=== PATIENT | female | born 1985 | race Hispanic/Latino ===

== ENCOUNTER → 2023-09-02 | Outpatient (CLI) | payer OTHER ==
[2023-09-02 16:58] LABS: T4 (THYROXINE) 10.8 ug/dL (4.7-13.3); THYROID STIMULATING HORMONE 1.07 uIU/mL (0.36-3.74)
== END | disposition home or self-care (01) ==
LOC: LAB 16:03
PROVIDERS: ATTEND Internal Medicine Cardiovascular Disease
DX: I10 Essential (primary) hypertension (principal); E78.5 Hyperlipidemia, unspecified
CPT/HCPCS: 36415; 84436; 84443; 84479